=== PATIENT | female | born 1940 | race Caucasian/White ===

== ENCOUNTER 2017-12-13 13:44 | Emergency (ER) | payer MEDICARE ==
[2017-12-13 13:46] VITALS: BP 167/89; PULSE 85; RESP 20; TEMP 97.9; O2SAT 96
--- NOTE | 2017-12-13 14:33 | RADRPT ---
EXAM DATE/TIME: 12/13/2017 14:11 [place] COMPARISON: No previous studies available for comparison. INDICATIONS : Left hip pain MEDICAL HISTORY : Arthritis. 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 This is in good position. Osteoarthritic changes are seen involving the left hip. No femoral head flattening or subc hondral geode formation. No fractures or dislocations. Degenerative changes involving the SI joints a nd pubic symphysis. Venous calcifications overlie the pelvis. CONCLUSION: Osteoarthritis of the left hip. No acute abnormality. Juan Bullock Jr., MD on December 13, 2017 at 14:21 Board Certified Radiologist. This report was verified electronically.
--- NOTE | 2017-12-13 14:56 | PD ---
HPI Chief Complaint: Musculoskeletal Complaint Time Seen by Provider: 14:34 Travel History International Travel<30 days: No Contact w/Intl Traveler<30days: No Traveled to known affect area: No History of Present Illness HPI Patient comes emergency department complaining of left hip pain that began 2 days ago. Patient denies any injury, fevers, loss change in bowel or bladder, numbness or tingling anywhere. Patient reports a sharp stabbing pain that radiates down to her foot. Patient has tried taking [id number] medication with minimal relief of symptoms. Patient reports that 5 years ago she is told she will eventually need a hip replacement. Patient has not seen orthopedic for this yet but is try getting in with Dr. Mendoza and states she will referred by her primary care doctor to him. Patient states she came to the hospital hoping that Dr. Mendoza could see her in the emergency department. COUNTS INCLUDE 234 BEDS AT THE [facility] Past Medical History Diabetes: No Hypertension: Yes Social History Alcohol Use: No Tobacco Use: No Substance Use: No Allergies-Medications (Allergen,Severity, Reaction): Coded Allergies: Penicillins (Verified Allergy, Unknown, 12/13/17) Reported Meds & Prescriptions Reported Meds & Active Scripts Active Medrol Dosepak (Methylprednisolone) 4 Mg Dspk 4 Mg PO DIRECTED Per Pharmacist direction Review of Systems Except as stated in HPI: all other systems reviewed are Neg Physical Exam Narrative GENERAL: Well-developed, overly nourished, in no acute distress, and non-ill appearing. SKIN: Focused skin assessment warm and dry. HEAD: Atraumatic. Normocephalic. EYES: Pupils equal and round. EOMI. No scleral icterus. No injection or drainage. ENT: No nasal bleeding or discharge. Mucous membranes pink and moist. NECK: Trachea midline. Supple. No nuclear rigidity. CARDIOVASCULAR: Dorsal pulses 2+, intact, and equal bilaterally. RESPIRATORY: No accessory muscle use. No respiratory distress. MUSCULOSKELETAL: No obvious deformities. No clubbing. No cyanosis. No edema. Full range of motion. Hip: FROM and equal BL with passive flexion, extension, Abduction, Adduction, and internal/external rotation. Pulses equal BL distal to injury. Capillary refill less than 2 seconds distal to injury and equal BL. FROM distal to injury and equal BL. Strength distal to injury equal BL. NV intact distal to injury and equal BL. Plantar flexion and dorsal flexion equal BL. Dorsal pulses equal BL. Sensation equal BL 1st web space. NEUROLOGICAL: Awake and alert. No obvious cranial nerve deficits. Motor grossly within normal limits. Normal speech. PSYCHIATRIC: Appropriate mood and affect; insight and judgment normal. Data Data Last Documented VS Vital Signs Date Time Temp Pulse Resp B/P (MAP) Pulse Ox O2 Delivery O2 Flow Rate FiO2 12/13/17 13:46 97.9 85 20 167/89 (115) 96 Room Air Orders Orders Hip, Uni(Ap&Lat) W Ap Pelvis (12/13/17 ) Ed Discharge Order (12/13/17 14:50) Dexamethasone Inj (Decadron Inj) (12/13/17 15:00) Oxycodone-Acetamin 5-325 Mg (Percocet (12/13/17 15:00) MDM Medical Decision Making Medical Screen Exam Complete: Yes Emergency Medical Condition: Yes Interpretation(s) Last Impressions Hip and Pelvis X-Ray 12/13/17 0000 Signed Impressions: Service Date/Time: Wednesday, December 13, 2017 14:11 - CONCLUSION: Osteoarthritis of the left hip. No acute abnormality. Juan Bullock Jr., MD Differential Diagnosis Fracture, strain, bursitis, arthritis, gout, avascular necrosis Narrative Course There is no evidence to suggest infectious, septic joint at this time. There was no significant erythema, heat, swelling or fluctuance. The patient has had no distal or local trauma, cuts or abrasions. There has been no fever. There is no trauma to suspect contusion, strain or fracture. There is no evidence to suggest occult fracture or bony tumor by x-ray. There is no clinical evidence to suggest bursitis, tendonitis, gout, pseudogout, Rheumatoid arthritis, or septic arthritis. The patient was placed on steroids medication. I explained the patient does not recall or not they will come see her in the emergency department as her condition does not require emergent intervention and can be followed up as an outpatient basis. The patient was referred to orthopedics. The patient agreed with plan. Patient in no obvious distress upon re-evaluation. All pertinent Radiology result(s) discussed with patient and her daughter. Patient was asked if they wanted to speak to my attending, which the patient did not wish to do at this time. Any questions/concerns in reference to patient diagnosis/condition discussed and clarified prior to patient's discharge. Reinforced sheer importance of close follow up with patient's primary physician or primary care clinic. Instructed patient to return to ED immediately, if symptoms return/ worsen. Patient showed understanding of above instructions. Further instructions and recommendations were detailed in discharge paperwork. Patient ambulated without difficulty out of ED at discharge. Diagnosis Primary Impression: Osteoarthritis of left hip Qualified Codes: M16.12 - Unilateral primary osteoarthritis, left hip Referrals: Jordi Worthington MD Patient Instructions: Arthritis (ED), General Instructions, Hip Pain (ED) Additional Instructions: Follow-up with your primary care physician and/or orthopedic this week for reevaluation. Take all medication as prescribed. Use [id number] Tylenol as needed for additional pain control. Follow instructions on the packaging. Return to the emergency department if symptoms get worse. Med/Other Pt SpecificInfo: Prescription(s) given Scripts Methylprednisolone Dosepak (Medrol Dosepak) 4 Mg Dspk 4 MG PO DIRECTED, #1 DSPK 0 Refills Per Pharmacist direction Prov: Amada Barcenas MD 12/13/17 Disposition: 01 DISCHARGE HOME Condition: Stable Kumar Zimmer Dec 13, 2017 14:56
[2017-12-13] MEDS ORDERED: MEDR4PAK PO (14:57)
[2017-12-13] MEDS ORDERED: oxyCODONE/ACETAMINOPHEN 5 MG/325 MG TAB PO ONE (15:00)
[2017-12-13] MEDS ORDERED: DEXAMETHASONE SOD PHOS 4 MG/ML VIAL IM ONE (15:00)
== END 2017-12-13 15:52 | disposition home or self-care (01) ==
LOC: NEPK 13:44
DX: M16.12 Unilateral primary osteoarthritis, left hip (principal)
CPT/HCPCS: 73502; 96372; 99284; J1100